=== PATIENT | female | born 1955 | race Caucasian/White ===

== ENCOUNTER 2016-08-22 17:46 | Emergency (ER) | payer OTHER ==
[~2016-08-22] VITALS: Ht 162.6 cm; Wt 61.8 kg
[2016-08-22 17:59] VITALS: BP 164/90; PULSE 70; RESP 20; O2SAT 100
--- NOTE | 2016-08-22 20:04 | ED.REPORT ---
HPI-Extremity Problem Lower Date of Service Aug 22, 2016 ED Provider: Rishabh Taylor DO Patient is a 61 year old female who presents to the ED complaining of increasing pain in her left leg. Associated symptoms include tenderness and swelling of the leg and knee. The patient states that she was recently in the car for over 18 hours a week ago and rates the pain as an 8/10. She also reports she initially injured her knee about 12 weeks ago. When she had it examined, the doctors did not feel the need to scan it and she was not given a knee immobilizer. Patient reports that when the knee injury happened, it did not hurt to walk but the pain has since started to travel down her leg and behind the knee, especially when she walks. Nursing Notes Stated Complaint: PAIN AND SWELLING IN CALF Chief Complaint: Extremity Trauma Nursing Notes Reviewed: Yes Allergies: Coded Allergies: No Known Allergies (Unverified , 08/22/16) General Time Seen by MD: 20:03 Chief Complaint Knee injury left Hx Obtained From: Patient Arrived By: Walk-in Onset Occurred: 1 week ago Symptom Duration: Since onset Caused by: Accidental Location: : Knee left: Leg left Quality: Painful Severity: Current: Pain level 8 out of 10 Exacerbated by: Movement Recent Healthcare: No recent hospitalization, Recent doctor visit Past Medical History Past Medical History none reported Smoking History Unknown if Ever Smoker Social History Other Social History: , Visiting locally Ambulatory Status Independent Review of Systems Constitutional: Denies: Chills, Fever Musculoskeletal: Reports: Extremity pain, Extremity swelling Neurologic: Denies: Numbness, Problem walking, Weakness Complete sys rev & neg: except as marked. Respiratory: Denies: Non-productive cough, Shortness of breath Physical Exam Initial Vital Signs Vital Signs (First) Date Time Temp Pulse Resp B/P Pulse Ox O2 Delivery O2 Flow Rate FiO2 08/22/16 17:59 36.4 70 20 164/90 100 Room Air Initial VS: Reviewed Lower Extremity / Pelvis / MS: Neurologic intact, Vascular intact mild swelling of the left knee tenderness of the posterior area of the knee Ankle / Foot: Atraumatic, Full range of motion, Non-tender General/Constitutional: Awake, Alert, No acute distress Respiratory / Chest: Atraumatic, Breath sounds NL, Breath sounds = bilat, No respiratory distress Cardiovascular: Heart rate NL, Regular rhythm, Heart sounds NL, No murmurs, No rubs, Cap refill not delayed, Peripheral circulation NL, Pulses = bilaterally, No gross BP differential Skin: Atraumatic, Color NL, No rash, Warm, Dry Neurologic: Oriented X3, Speech NL, No motor deficits, No sensory deficits Head / Eyes: Atraumatic, Normocephalic, PERRL, EOMI Psychiatric: Affect NL, Mood NL Interpretation & Diagnostics Interpretation & Diagnostics: US tech reports no evidence of blood clot Re-Eval/Medical Decision Med Decision/Clinical Course No evidence of DVT per ultrasound Cross her pain is uncertain but there does not appear to be an acute arterial insufficiency, DVT or infection. Recommend outpatient follow-up. Over-the- counter analgesics as directed. Re-Evaluation/Progress : Time of Eval: 21:29 Re-Evaluation/Progress Note: Discussed ultrasound results and plan for discharge. Patient understands and agrees to plan. All questions were addressed. Counseled Regarding: Diagnosis, Lab results, Need for follow-up, When/why to return to ED Discharge & Departure Impression: Primary Impression: Knee pain, left Chronicity: acute Qualified Code: M25.562 - Pain in left knee Disposition: Home Discharge Condition All VS Reviewed: Yes Condition: Stable Patient Instructions: Knee Pain (ED) Additional Instructions: Your labs and scans were normal and reassuring. There was no evidence of a blood clot. You can take Tylenol as directed for pain. Follow up with your primary care physician next week, if the pain and swelling persist, to discuss MRI/further evaluation of the knee. Return to the emergency department if you develop any new or concerning symptoms. Referrals: OTHER,PHYSICIAN (PCP) Juan Miguel Barbour MD Attestation Portions of this note were transcribed by Gissel Felix. I, Dr. Taylor personally performed the history, physical exam and medical decision-making; I reviewed and confirmed the accuracy of the information in the transcribed note. Signed by: Thomas Del Toro, 08/22/16 and 2034 copies to: Juan Miguel Barbour MD, Todd P DO Aug 22, 2016 20:04 Catarina Felix Aug 22, 2016 20:22
[2016-08-22 20:57] VITALS: BP 138/82; PULSE 60; O2SAT 99
[2016-08-22 21:37] VITALS: BP 138/82; PULSE 60; RESP 20; O2SAT 99
--- NOTE | 2016-08-22 22:09 | DRSVH ---
PROCEDURE: US VEINOUS LEG DUPLEX UNILATERAL, LEFT INDICATIONS: swelling, pain TECHNIQUE: Real-time imaging, as well as color and pulse Doppler interrogation, were performed of the lower extr emity deep veins from the inguinal ligament to the popliteal fossa. COMPARISON: None. FINDINGS: The deep veins are normally compressible, and free of intraluminal thrombus. Color and pu lse Doppler demonstrate normal phasic intraluminal flow. There is normal augmentation response to di stal compression maneuver. IMPRESSION: 1. No evidence of deep venous thrombosis in the left lower extremity. Dictated by: Angel Parra M.D. on 08/22/2016 at 22:01 Approved by: Angel Parra M.D. on 08/22/2016 at 22:07
== END 2016-08-22 21:37 | disposition home or self-care (01) ==
LOC: SED 17:46
DX: M25.462 Effusion, left knee (principal); X58.XXXA Exposure to other specified factors, initial encounter; Y92.9 Unspecified place or not applicable; Y93.9 Activity, unspecified; Y99.9 Unspecified external cause status